=== PATIENT | female | born 1985 | race Caucasian/White ===

== ENCOUNTER → 2024-04-26 | Outpatient (CLI) | payer OTHER | LOC: MHCPAIN 07:46 | DX: M47.812 Spondylosis without myelopathy or radiculopathy, cervical region (principal); M48.02 Spinal stenosis, cervical region; M47.816 Spondylosis without myelopathy or radiculopathy, lumbar region; M53.3 Sacrococcygeal disorders, not elsewhere classified; M48.061 Spinal stenosis, lumbar region without neurogenic claudication | CPT/HCPCS: G0463 ==

== ENCOUNTER → 2024-05-31 | Outpatient (CLI) | payer OTHER | LOC: MHCPAIN 08:48 | DX: M51.36 Other intervertebral disc degeneration, lumbar region (principal); M48.061 Spinal stenosis, lumbar region without neurogenic claudication; M47.812 Spondylosis without myelopathy or radiculopathy, cervical region; M48.02 Spinal stenosis, cervical region; M54.50 Low back pain, unspecified; M54.2 Cervicalgia | CPT/HCPCS: G0463 ==

== ENCOUNTER 2024-06-24 08:14 | Day surgery (SDC) | payer OTHER ==
[~2024-06-24] VITALS: Ht 177.8 cm; Wt 94.6 kg
[~2024-06-24 08:14] MED LIST: LR 1,000 ML IV SCH; Ondansetron 4 MG/2 ML VIAL IV PRN
[2024-06-24 09:07] VITALS: BP 121/96; PULSE 79; TEMP 97
[2024-06-24] MEDS ORDERED: Lidocaine PF 2% (20 MG/ML) 5 ML VIAL ONE (09:43)
[2024-06-24 10:35] VITALS: BP 131/77; PULSE 73; TEMP 97
[2024-06-24 10:48] VITALS: BP 119/92; PULSE 86
--- NOTE | 2024-06-24 11:25 | NUR ---
Pt returned via cart to GI bay1 post procedure at 1035. Ambulated with staff by sides to recliner in bay. A&O. VSS-see flowsheet. Tolerated oral intake. Dr Allen in to visit with patient post procedure. IV removed and pressure dressing applied. Discharge teaching completed, pt verbalized understanding. After dressing, pt taken via wheelchair to private vehicle for dc home with to drive.
== END 2024-06-24 11:25 | disposition home or self-care (01) ==
LOC: SDCO 08:14
DX: K20.90 Esophagitis, unspecified without bleeding (principal); E16.2 Hypoglycemia, unspecified; R14.0 Abdominal distension (gaseous); R19.4 Change in bowel habit; R19.7 Diarrhea, unspecified; R19.5 Other fecal abnormalities; R15.9 Full incontinence of feces; F17.290 Nicotine dependence, other tobacco product, uncomplicated; M99.05 Segmental and somatic dysfunction of pelvic region; Z83.79 Family history of other diseases of the digestive system; Z90.49 Acquired absence of other specified parts of digestive tract
CPT/HCPCS: J2704; J7120

== ENCOUNTER → 2024-08-01 | Outpatient (CLI) | payer OTHER | LOC: MHCPAIN 09:04 | DX: M47.817 Spondylosis without myelopathy or radiculopathy, lumbosacral region (principal); M54.50 Low back pain, unspecified ==

== ENCOUNTER → 2024-08-08 | Outpatient (CLI) | payer OTHER | LOC: MHCPAIN 08:58 | DX: M47.816 Spondylosis without myelopathy or radiculopathy, lumbar region (principal); M48.061 Spinal stenosis, lumbar region without neurogenic claudication; M48.02 Spinal stenosis, cervical region; M47.812 Spondylosis without myelopathy or radiculopathy, cervical region | CPT/HCPCS: G0463 ==